=== PATIENT | female | born 2000 ===

== ENCOUNTER 2021-04-29 22:21 | Emergency (ER) ==
[~2021-04-29] VITALS: Ht 162.6 cm; Wt 75.2 kg
[2021-04-29] MEDS ORDERED: ADVI200T17 PO (22:25)
== END 2021-04-30 04:45 | disposition left against medical advice (07) ==
LOC: M ED 22:21
DX: Z53.21 Procedure and treatment not carried out due to patient leaving prior to being seen by health care provider (principal)

== ENCOUNTER → 2021-04-30 | Outpatient (REF) | payer OTHER ==
[~2021-04-30] MED LIST: ADVI200T17 PO
[2021-04-30 17:32] LABS: GC DNA AMPLIFICATION NEGATIVE (NEGATIVE)
== END ==
LOC: M WUC 15:36
PROVIDERS: ATTEND Physician Assistant
DX: R30.0 Dysuria (principal)